=== PATIENT | female | born 1975 | race African-American/Black ===

== ENCOUNTER 2016-12-06 00:59 | Emergency (ER) | payer OTHER ==
[2016-12-06] MEDS ORDERED: HYDROcodone/Acetaminophen 10/325 mg Tablet ONE (01:27)
== END 2016-12-06 01:36 | disposition home or self-care (01) ==
LOC: ERS 00:59
DX: K02.9 Dental caries, unspecified (principal); K03.81 Cracked tooth; F20.9 Schizophrenia, unspecified; F32.9 Major depressive disorder, single episode, unspecified; F17.210 Nicotine dependence, cigarettes, uncomplicated; G51.0 Bell's palsy; I10 Essential (primary) hypertension; J45.909 Unspecified asthma, uncomplicated; K21.9 Gastro-esophageal reflux disease without esophagitis; Z79.899 Other long term (current) drug therapy
CPT/HCPCS: 99283

== ENCOUNTER 2017-01-01 19:33 | Emergency (ER) | payer OTHER ==
[2017-01-01] MEDS ORDERED: HYDROcodone/Acetaminophen 10/325 mg Tablet ONE (20:48)
== END 2017-01-01 20:54 | disposition home or self-care (01) ==
LOC: ERS 19:33
DX: K03.81 Cracked tooth (principal); K04.7 Periapical abscess without sinus; K02.9 Dental caries, unspecified; K21.9 Gastro-esophageal reflux disease without esophagitis; F20.9 Schizophrenia, unspecified; F32.9 Major depressive disorder, single episode, unspecified; F17.210 Nicotine dependence, cigarettes, uncomplicated; J45.909 Unspecified asthma, uncomplicated; G51.0 Bell's palsy; I10 Essential (primary) hypertension; M46.90 Unspecified inflammatory spondylopathy, site unspecified; M19.011 Primary osteoarthritis, right shoulder; Z71.6 Tobacco abuse counseling
CPT/HCPCS: 99406

== ENCOUNTER 2017-01-20 20:35 | Emergency (ER) | payer OTHER | END 2017-01-20 23:10 | disposition home or self-care (01) | LOC: ERS 20:35 | DX: G89.29 Other chronic pain (principal); M79.603 Pain in arm, unspecified; K21.9 Gastro-esophageal reflux disease without esophagitis; G51.0 Bell's palsy; J45.909 Unspecified asthma, uncomplicated; F20.9 Schizophrenia, unspecified; F32.9 Major depressive disorder, single episode, unspecified; F17.210 Nicotine dependence, cigarettes, uncomplicated; M19.90 Unspecified osteoarthritis, unspecified site; Z79.899 Other long term (current) drug therapy | CPT/HCPCS: 99283 ==

== ENCOUNTER 2017-01-29 16:25 | Emergency (ER) | payer OTHER ==
[2017-01-29] MEDS ORDERED: Ibuprofen 200 MG TAB ONE (18:01)
== END 2017-01-29 19:42 | disposition left against medical advice (07) ==
LOC: ERS 16:25
DX: M79.672 Pain in left foot (principal); K21.9 Gastro-esophageal reflux disease without esophagitis; I10 Essential (primary) hypertension; J45.909 Unspecified asthma, uncomplicated; F20.9 Schizophrenia, unspecified; F32.9 Major depressive disorder, single episode, unspecified; F17.210 Nicotine dependence, cigarettes, uncomplicated
CPT/HCPCS: 36415; 84550; 99283

== ENCOUNTER 2017-02-18 13:12 | Emergency (ER) | payer OTHER | END 2017-02-18 13:48 | disposition left against medical advice (07) | LOC: ERS 13:12 | DX: Z53.21 Procedure and treatment not carried out due to patient leaving prior to being seen by health care provider (principal) ==

== ENCOUNTER 2017-03-11 13:45 | Emergency (ER) | payer OTHER ==
[2017-03-11] MEDS ORDERED: Ibuprofen 800 MG TAB ONE (16:21)
[2017-03-11] MEDS ORDERED: predniSONE 20 MG TAB ONE (16:21)
== END 2017-03-11 16:48 | disposition home or self-care (01) ==
LOC: ERS 13:45
DX: M79.672 Pain in left foot (principal); G89.29 Other chronic pain; M19.90 Unspecified osteoarthritis, unspecified site; K21.9 Gastro-esophageal reflux disease without esophagitis; I10 Essential (primary) hypertension; J45.909 Unspecified asthma, uncomplicated; F32.9 Major depressive disorder, single episode, unspecified; F20.9 Schizophrenia, unspecified; F17.210 Nicotine dependence, cigarettes, uncomplicated
CPT/HCPCS: 99283; J7506

== ENCOUNTER 2017-03-19 11:05 | Outpatient (CLI) | payer OTHER | END 2017-03-19 11:06 | disposition home or self-care (01) | LOC: BICRAD 11:05 | PROVIDERS: ATTEND Family Medicine | DX: M79.672 Pain in left foot (principal); M77.32 Calcaneal spur, left foot ==

== ENCOUNTER 2017-03-30 13:41 | Emergency (ER) | payer OTHER ==
[2017-03-30] MEDS ORDERED: Ketorolac Tromethamine 30 MG/ML VIAL ONE (14:11)
== END 2017-03-30 14:36 | disposition home or self-care (01) ==
LOC: ERS 13:41
DX: G89.29 Other chronic pain (principal); M79.672 Pain in left foot; K21.9 Gastro-esophageal reflux disease without esophagitis; I10 Essential (primary) hypertension; J45.909 Unspecified asthma, uncomplicated; F17.210 Nicotine dependence, cigarettes, uncomplicated; F32.9 Major depressive disorder, single episode, unspecified; F20.9 Schizophrenia, unspecified
CPT/HCPCS: 96372; J1885

== ENCOUNTER 2017-04-13 16:14 | Emergency (ER) | payer OTHER | END 2017-04-13 17:24 | disposition home or self-care (01) | LOC: ERS 16:14 | DX: G89.29 Other chronic pain (principal); M79.672 Pain in left foot; F20.9 Schizophrenia, unspecified; M19.90 Unspecified osteoarthritis, unspecified site; J45.909 Unspecified asthma, uncomplicated; K21.9 Gastro-esophageal reflux disease without esophagitis; I10 Essential (primary) hypertension; F32.9 Major depressive disorder, single episode, unspecified; F17.210 Nicotine dependence, cigarettes, uncomplicated | CPT/HCPCS: 99283 ==

== ENCOUNTER 2017-05-06 14:06 | Emergency (ER) | payer OTHER | END 2017-05-06 15:11 | disposition left against medical advice (07) | LOC: ERS 14:06 | DX: Z53.21 Procedure and treatment not carried out due to patient leaving prior to being seen by health care provider (principal) | CPT/HCPCS: 87081; 87430; 87804 ==

== ENCOUNTER 2017-05-25 13:57 | Emergency (ER) | payer OTHER ==
[2017-05-25] MEDS ORDERED: Ketorolac Tromethamine 60 MG/2 ML VIAL ONE (14:52)
[2017-05-25 15:03] LABS: Bilirubin Negative (Negative); Blood, Urine Negative (Negative); Clarity CLEAR (Clear); Glucose, Urine (Dipstick) Negative (Negative); Leukocyte Small (Negative); Nitrite Negative (Negative); Protein, Urine (Dipstick) Negative (Neg-Trace); Specific Gravity, Urine 1.013 (1.002-1.036); pH, Urine 7.5 (5.0-9.0)
[2017-05-25 15:06] LABS: Bacteria/HPF None Seen HPF (None Seen); Hyaline Casts/LPF 4-6 HYALINE CAST LPF (0-3 Hyaline); Pathc Cast-AUWi Flag 1.16 (0-2.49); RBC/HPF 0-3 HPF (0-3); Squamous Epithelial 0-3 HPF (0-3)
== END 2017-05-25 15:49 | disposition home or self-care (01) ==
LOC: ERS 13:57
DX: N39.0 Urinary tract infection, site not specified (principal); M19.90 Unspecified osteoarthritis, unspecified site; K21.9 Gastro-esophageal reflux disease without esophagitis; E66.9 Obesity, unspecified; I10 Essential (primary) hypertension; J45.909 Unspecified asthma, uncomplicated; F32.9 Major depressive disorder, single episode, unspecified; F20.9 Schizophrenia, unspecified; F17.210 Nicotine dependence, cigarettes, uncomplicated; Z79.891 Long term (current) use of opiate analgesic; Z79.899 Other long term (current) drug therapy
CPT/HCPCS: 81003; 81015; 87077; 87086; 96372; J1885

== ENCOUNTER 2017-07-11 16:26 | Emergency (ER) | payer OTHER | END 2017-07-11 17:41 | disposition home or self-care (01) | LOC: ERS 16:26 | DX: L02.214 Cutaneous abscess of groin (principal); E66.9 Obesity, unspecified; K21.9 Gastro-esophageal reflux disease without esophagitis; M19.90 Unspecified osteoarthritis, unspecified site; J45.909 Unspecified asthma, uncomplicated; F32.9 Major depressive disorder, single episode, unspecified; F20.9 Schizophrenia, unspecified; I10 Essential (primary) hypertension; F17.210 Nicotine dependence, cigarettes, uncomplicated; Z79.891 Long term (current) use of opiate analgesic; Z79.899 Other long term (current) drug therapy | CPT/HCPCS: 99281 ==

== ENCOUNTER 2017-08-19 15:09 | Outpatient (CLI) | payer OTHER ==
--- NOTE | 2017-08-19 16:27 | MMO ---
BILATERAL SCREENING MAMMOGRAM: Indication: Annual exam. Comparison: None; baseline exam. FINDINGS: This study is interpreted with the assistance of computer aided detection. There are scattered fibroglandular elements bilaterally. There are benign appearing calcifications bilaterally. There are benign scattered small soft tissue masses within the right and left breasts which may refle ct small cysts or possibly small fibroadenomas. No suspicious mass, cluster of microcalcifications, or area of architectural distortion evident. IMPRESSION: BIRADS category 2 - benign. POS: [facility]
== END 2017-08-19 15:10 | disposition home or self-care (01) ==
LOC: SCSMAMMO 15:09
PROVIDERS: ATTEND Family Medicine
DX: Z12.31 Encounter for screening mammogram for malignant neoplasm of breast (principal)
CPT/HCPCS: 77067

== ENCOUNTER 2017-08-26 17:01 | Emergency (ER) | payer OTHER ==
--- NOTE | 2017-08-26 17:27 | RAD ---
LEFT HAND THREE VIEWS: 08/26/2017 HISTORY: Left wrist pain for three weeks. No recent injury. COMPARISON: 03/07/2015 FINDINGS: There is no evidence of a fracture, dislocation, or other osseous abnormality involving the left wris t. There has been no interval change when compared to the prior exam. IMPRESSION: No acute osseous abnormality. If there is clinical concern for fracture of the navicular bone, follo w-up views of the wrist can be performed in four to seven days, to exclude a radiographically occult fracture. POS: [facility]
== END 2017-08-26 17:55 | disposition home or self-care (01) ==
LOC: ERS 17:01
DX: M70.832 Other soft tissue disorders related to use, overuse and pressure, left forearm (principal); E03.9 Hypothyroidism, unspecified; E66.9 Obesity, unspecified; M19.90 Unspecified osteoarthritis, unspecified site; K21.9 Gastro-esophageal reflux disease without esophagitis; I10 Essential (primary) hypertension; J45.909 Unspecified asthma, uncomplicated; F32.9 Major depressive disorder, single episode, unspecified; F20.9 Schizophrenia, unspecified; F17.210 Nicotine dependence, cigarettes, uncomplicated; X50.3XXA Overexertion from repetitive movements, initial encounter; Y92.89 Other specified places as the place of occurrence of the external cause; Z79.899 Other long term (current) drug therapy

== ENCOUNTER 2017-09-22 18:41 | Emergency (ER) | payer OTHER | END 2017-09-22 19:18 | disposition home or self-care (01) | LOC: ERS 18:41 | DX: Z00.00 Encounter for general adult medical examination without abnormal findings (principal); E03.9 Hypothyroidism, unspecified; F32.9 Major depressive disorder, single episode, unspecified; F17.210 Nicotine dependence, cigarettes, uncomplicated; E66.9 Obesity, unspecified; I10 Essential (primary) hypertension; K21.9 Gastro-esophageal reflux disease without esophagitis; J45.909 Unspecified asthma, uncomplicated; Z79.899 Other long term (current) drug therapy | CPT/HCPCS: 99282 ==

== ENCOUNTER 2017-10-24 13:36 | Outpatient (CLI) | payer OTHER | END 2017-10-24 13:37 | disposition home or self-care (01) | LOC: BICRAD 13:36 | PROVIDERS: ATTEND Family Medicine | DX: M51.16 Intervertebral disc disorders with radiculopathy, lumbar region (principal); M51.17 Intervertebral disc disorders with radiculopathy, lumbosacral region; M47.26 Other spondylosis with radiculopathy, lumbar region; M47.27 Other spondylosis with radiculopathy, lumbosacral region | CPT/HCPCS: 72100 ==

== ENCOUNTER 2018-01-07 11:44 | Outpatient (CLI) | payer OTHER ==
--- NOTE | 2018-01-07 17:44 | MRI ---
MRI LUMBAR SPINE WITHOUT CONTRAST: Date: 01/07/18 HISTORY: M56.1, back pain with radiculopathy. Chronic back pain since her 20s. COMPARISON: Lumbar spine radiographs dated 10/24/17. FINDINGS: The aortic contour is nonaneurysmal. No hydronephrosis. No retroperitoneal adenopathy. Paraspinal musculature is normal. There is no marrow infiltrative process. The conus medullaris terminates at the inferior end plate of L1. Levels are as follows: L1-2: Normal disc. No neural foraminal or spinal canal narrowing. L2-3: Normal disc. No neural foraminal or spinal canal narrowing. L3-4: There is mild disc desiccation. There are small bilateral subforaminal posterior disc osteophy te complexes. Mild facet arthropathy. Mild bilateral neural foraminal narrowing. L4-5: Moderate degenerative disc space height loss. There is a broad based posterior disc bulge, wor se in the right paracentral subforaminal and extraforaminal zones, although there is extension into t he left subforaminal zone. There is moderate bilateral neural foraminal narrowing with abutment of th e exiting and traverse nerve roots. The spinal canal is narrowed to approximately 5.0 mm. There are s mall osteophytes associated with this posterior disc protrusion. L5-S1: Circumferential disc bulge with greater extension in left paracentral subforaminal and extraf oraminal zones. Moderate facet arthropathy. There is abutment of the exiting traversing nerve roots o n the left, as well as on the right. The spinal canal measures approximately 7.0 mm. IMPRESSION: 1. Spondylosis centered at L4-5 and L5-S1 with neural foraminal and spinal canal narrowing. 2. 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 POS: [facility]
== END 2018-01-07 11:45 | disposition home or self-care (01) ==
LOC: BICMRI 11:44
PROVIDERS: ATTEND Family Medicine
DX: M47.26 Other spondylosis with radiculopathy, lumbar region (principal); M47.817 Spondylosis without myelopathy or radiculopathy, lumbosacral region; M48.061 Spinal stenosis, lumbar region without neurogenic claudication; Q67.5 Congenital deformity of spine
CPT/HCPCS: 72148

== ENCOUNTER 2018-01-12 16:08 | Emergency (ER) | payer OTHER ==
--- NOTE | 2018-01-12 16:46 | RAD ---
THREE VIEWS LEFT FOOT: Comparison: 10-31-15 History: Stepped on nail, left foot pain. FINDINGS: Three views of the left foot shows no evidence of acute fracture or dislocation. No degenerative cox ges are seen. No soft tissue swelling is seen. No radiopaque foreign body is present. IMPRESSION: Unremarkable exam. POS: [facility]
[2018-01-12] MEDS ORDERED: Adacel (T-DAP) 0.5 ML VIAL ONE (16:54)
[2018-01-12] MEDS ORDERED: Bacitracin Zinc 1 Packet ONE (16:54)
[2018-01-12] MEDS ORDERED: Ibuprofen 200 MG TAB ONE (16:54)
== END 2018-01-12 17:24 | disposition home or self-care (01) ==
LOC: ERS 16:08
DX: S91.331A Puncture wound without foreign body, right foot, initial encounter (principal); K21.9 Gastro-esophageal reflux disease without esophagitis; I10 Essential (primary) hypertension; F20.9 Schizophrenia, unspecified; F32.9 Major depressive disorder, single episode, unspecified; F17.210 Nicotine dependence, cigarettes, uncomplicated; Z79.899 Other long term (current) drug therapy; Z79.891 Long term (current) use of opiate analgesic; W45.0XXA Nail entering through skin, initial encounter
CPT/HCPCS: 90471; 90715

== ENCOUNTER 2018-05-11 19:41 | Emergency (ER) | payer OTHER ==
[2018-05-11] MEDS ORDERED: Prochlorperazine Maleate 5 MG TAB ONE (22:13)
== END 2018-05-11 22:50 | disposition home or self-care (01) ==
LOC: ERS 19:41
DX: M62.838 Other muscle spasm (principal); R51 Headache; K21.9 Gastro-esophageal reflux disease without esophagitis; E03.9 Hypothyroidism, unspecified; E66.9 Obesity, unspecified; M19.90 Unspecified osteoarthritis, unspecified site; J45.909 Unspecified asthma, uncomplicated; F32.9 Major depressive disorder, single episode, unspecified; F20.9 Schizophrenia, unspecified; F17.210 Nicotine dependence, cigarettes, uncomplicated; Z79.899 Other long term (current) drug therapy; Z79.891 Long term (current) use of opiate analgesic
CPT/HCPCS: 99281; Q0164

== ENCOUNTER 2018-05-22 08:41 | Outpatient (CLI) | payer OTHER ==
--- NOTE | 2018-05-22 09:45 | ULT ---
SOFT TISSUE ULTRASOUND: HISTORY: Left parietal palpable mass. FINDINGS: Ultrasound evaluation of a palpable finding involving the left parietal region of the skull. There i s an oval fairly well circumscribed 0.6 x 2.2 x 2.2 cm diameter somewhat heterogeneous echogenic "mas s" noted superficial to the calvarium in the region of palpable concern. This probably represents a cephalohematoma. Consider followup brain CT for further assessment if there remains clinical concern . IMPRESSION: Circumscribed oval somewhat heterogeneously echogenic mass just peripheral to the calvarium accountin g for the palpable finding most consistent with a cephalohematoma. Consider followup brain CT if the re remains clinical concern. POS: [facility]
== END 2018-05-22 08:42 | disposition home or self-care (01) ==
LOC: BICULT 08:41
PROVIDERS: ATTEND Family Medicine
DX: G93.89 Other specified disorders of brain (principal); R90.89 Other abnormal findings on diagnostic imaging of central nervous system
CPT/HCPCS: 76999

== ENCOUNTER 2018-07-21 20:28 | Emergency (ER) | payer OTHER ==
--- NOTE | 2018-07-21 20:58 | RAD ---
EXAM: Single view of the chest HISTORY: Chest pain COMPARISON: 06/26/2016 FINDINGS: Single view of the chest shows a normal sized cardiomediastinal silhouette. There is no amber dence of consolidation, mass, or pleural effusion. The bones are unremarkable. IMPRESSION: No evidence of acute cardiopulmonary disease
[2018-07-21 21:06] LABS: #Basophils 0.1 thou/uL (0.0-0.2); #Eosinphils 0.3 thou/uL (0.0-0.7); #Lymphocytes 3.8 thou/uL (1.20-3.40); #Monocytes 0.7 thou/uL (0.11-0.59); #Neutrophils 4.4 thou/uL (1.40-6.50); %Basophils 1.2 % (0.0-1.0); %Eosinophils 3.5 % (0.0-10.0); %Lymphocytes 40.7 % (21.0-51.0); %Monocytes 7.2 % (0.0-10.0); %Neutrophils 47.4 % (42.0-75.0); Hemoglobin 13.6 g/dL (12.0-16.0); Mean Corpuscular Hemoglobin 32.5 pg (27.0-31.0); Mean Corpuscular Volume 95.5 fL (78.0-98.0); Mean Platelet Volume 7.3 fL (7.4-10.4); Platelet Count 277 thou/uL (130-400); RBC Distribution Width 11.5 % (11.5-14.5); Red Blood Cell (RBC) Count 4.19 mill/uL (4.20-5.40); White Blood Cell (WBC) Count 9.3 thou/uL (4.8-10.8)
[2018-07-21 21:35] LABS: ALT (SGPT) 14 U/L (8-55); AST (SGOT) 23 U/L (5-34); Albumin 4.1 g/dL (3.5-5.0); Alkaline Phosphatase 72 U/L (40-150); Anion Gap 12 mmol/L (10-20); BUN (Urea Nitrogen) 12 mg/dL (7.0-18.7); Bilirubin, Total 0.2 mg/dL (0.2-1.2); CK (CPK) 164 U/L (29-168); Calc. Creatinine Clearance 0 mL/min (70-130); Calcium 9.3 mg/dL (7.8-10.44); Carbon Dioxide 23 mmol/L (22-29); Chloride 108 mmol/L (98-107); Estimated GFR-MDRD 69; Globulin 3.1 g/dL (2.4-3.5); Glucose 108 mg/dL (70-105); Potassium 4.3 mmol/L (3.5-5.1); Protein, Total 7.2 g/dL (6.0-8.3); Sodium 139 mmol/L (136-145)
[2018-07-21] MEDS ORDERED: traMADol HCl 50 MG TAB ONE (21:37)
--- NOTE | 2018-07-26 14:53 | EKG ---
Test Reason : Blood Pressure : / mmHG Vent. Rate : 084 BPM Atrial Rate : 084 BPM P-R Int : 170 ms QRS Dur : 098 ms QT Int : 370 ms P-R-T Axes : 059 060 050 degrees QTc Int : 437 ms Normal sinus rhythm Cannot rule out Anterior infarct , age undetermined Abnormal ECG Confirmed by LEOBARDO COLLINS, SHEILA ([id number]), school photograph editor MACIEJ TEJADA ([id number]) on 07/26/2018 2:52:55 PM Referred By: Confirmed By:SHEILA BOOTH MD
== END 2018-07-21 21:53 | disposition home or self-care (01) ==
LOC: ERS 20:28
DX: R07.9 Chest pain, unspecified (principal); K21.9 Gastro-esophageal reflux disease without esophagitis; E03.9 Hypothyroidism, unspecified; I10 Essential (primary) hypertension; J45.909 Unspecified asthma, uncomplicated; F20.9 Schizophrenia, unspecified; F32.9 Major depressive disorder, single episode, unspecified; F17.210 Nicotine dependence, cigarettes, uncomplicated; M19.90 Unspecified osteoarthritis, unspecified site; E66.9 Obesity, unspecified; Z79.891 Long term (current) use of opiate analgesic; Z79.899 Other long term (current) drug therapy
CPT/HCPCS: 36416; 71045; 80053; 82550; 84484; 85025; 93005; 94760; C1713

== ENCOUNTER 2018-09-15 10:19 | Outpatient (CLI) | payer OTHER ==
--- NOTE | 2018-09-15 11:18 | MMO ---
Bilateral MAMMO Bilat Screen [facility]DI. CLINICAL HISTORY: Patient is 43 years old and is seen for screening. The patient has no family history of breast cancer. The patient has no personal history of cancer. VIEWS: The views performed were: bilateral craniocaudal; bilateral mediolateral oblique; and cleavage view. FILMS COMPARED: The present examination has been compared to a prior imaging study performed at [facility] on 08/19/2017. This study has been interpreted with the assistance of computer-aided detection. MAMMOGRAM FINDINGS: There are scattered fibroglandular densities. Finding 1: There are stable intramammary lymph nodes seen in both breasts. Finding 2: There are multiple stable nodules of varying size seen in both breasts. Finding 3: There are stable benign appearing calcifications seen in both breasts. There are no suspicious masses, suspicious calcifications, or new areas of architectural distortion. IMPRESSION: THERE IS NO MAMMOGRAPHIC EVIDENCE OF MALIGNANCY. A ROUTINE FOLLOW-UP MAMMOGRAM IN 1 YEAR IS RECOMMENDED. ACR BI-RADS Category 2 - Benign finding MAMMOGRAPHY NOTE: 1. A negative mammogram report should not delay a biopsy if a dominant of clinically suspicious mass is present. 2. Approximately 10% to 15% of breast cancers are not detected by mammography. 3. Adenosis and dense breasts may obscure an underlying neoplasm. Reported by: VSIHNU SALVADOR MD Electonically Signed: [id number]
== END 2018-09-15 10:20 | disposition home or self-care (01) ==
LOC: SCSMAMMO 10:19
PROVIDERS: ATTEND Family Medicine
DX: Z12.31 Encounter for screening mammogram for malignant neoplasm of breast (principal)
CPT/HCPCS: 77067

== ENCOUNTER 2019-02-27 12:13 | Emergency (ER) | payer OTHER ==
[2019-02-27] MEDS ORDERED: Ibuprofen 800 MG TAB ONE (12:45)
[2019-02-27] MEDS ORDERED: HYDROcodone/Acetaminophen 10/325 mg Tablet ONE (12:45)
== END 2019-02-27 13:06 | disposition home or self-care (01) ==
LOC: ERS 12:13
DX: M54.5 Low back pain (principal); G89.29 Other chronic pain; E03.9 Hypothyroidism, unspecified; K21.9 Gastro-esophageal reflux disease without esophagitis; I10 Essential (primary) hypertension; J45.909 Unspecified asthma, uncomplicated; M19.90 Unspecified osteoarthritis, unspecified site; F32.9 Major depressive disorder, single episode, unspecified; F20.9 Schizophrenia, unspecified; F17.210 Nicotine dependence, cigarettes, uncomplicated; Z79.899 Other long term (current) drug therapy
CPT/HCPCS: 99283

== ENCOUNTER 2019-03-07 21:52 | Emergency (ER) | payer OTHER ==
[2019-03-07] MEDS ORDERED: Ketorolac Tromethamine 60 MG/2 ML VIAL ONE (22:09)
[2019-03-07] MEDS ORDERED: Acetaminophen/Codeine 30-300mg Tablet ONE (22:09)
--- NOTE | 2019-03-07 22:31 | RAD ---
EXAM: Two views chest PROVIDED CLINICAL HISTORY: Right chest pain. COMPARISON: 07/21/2018 FINDINGS: Cardiac silhouette and pulmonary vasculature are within normal limits. There is suggestion of slight blunting of the right lateral costophrenic angle, but a similar finding was seen on prior study on 10/26/2016 as well as more recent study on 07/21/2018. This may be related to minimal pleural and paren chymal scarring. Lungs are otherwise clear. The osseous structures have a normal appearance. IMPRESSION: No acute cardiopulmonary process.
== END 2019-03-07 22:53 | disposition home or self-care (01) ==
LOC: ERS 21:52
DX: R07.81 Pleurodynia (principal); E03.9 Hypothyroidism, unspecified; M19.90 Unspecified osteoarthritis, unspecified site; J45.909 Unspecified asthma, uncomplicated; I10 Essential (primary) hypertension; F20.9 Schizophrenia, unspecified; F32.9 Major depressive disorder, single episode, unspecified; F17.210 Nicotine dependence, cigarettes, uncomplicated; Z79.899 Other long term (current) drug therapy
CPT/HCPCS: 71046; 96372; J1885

== ENCOUNTER 2019-05-30 21:39 | Emergency (ER) | payer SELFPAY ==
[2019-05-30 22:22] LABS: Bilirubin Negative (Negative); Blood, Urine Negative (Negative); Clarity Clear (Clear); Glucose, Urine (Dipstick) Normal (Negative); Leukocyte Negative Leu/uL (Negative); Mucous/LPF 2+ LPF (<2+); Nitrite Negative (Negative); Protein, Urine (Dipstick) 50 mg/dL (Neg-Trace); Urobilinogen 6 mg/dL (Less than 2); WBC/HPF 0-3 HPF (0-3)
[2019-05-30 22:26] LABS: Calcium Oxalate Crystals 3+ HPF (None Seen)
[2019-05-30 22:27] LABS: Bacteria/HPF Rare-Few HPF (None Seen)
== END 2019-05-30 22:44 | disposition home or self-care (01) ==
LOC: ERS 21:39
DX: M54.5 Low back pain (principal); E03.9 Hypothyroidism, unspecified; K21.9 Gastro-esophageal reflux disease without esophagitis; I10 Essential (primary) hypertension; J45.909 Unspecified asthma, uncomplicated; F17.210 Nicotine dependence, cigarettes, uncomplicated; Z79.899 Other long term (current) drug therapy
CPT/HCPCS: 81003; 81015; 99281

== ENCOUNTER 2019-06-28 20:25 | Emergency (ER) | payer OTHER ==
--- NOTE | 2019-06-28 20:55 | RAD ---
THREE VIEWS RIGHT SHOULDER: Comparison: None History: Tripped and fell with right shoulder pain. FINDINGS: Three views of the right shoulder shows no evidence of acute fracture or dislocation. No degenerative changes are seen. The visualized right thorax is unremarkable. IMPRESSION: No evidence of acute osseous abnormality. POS: [facility]
[2019-06-28] MEDS ORDERED: HYDROcodone/Acetaminophen 5/325 mg Tablet ONE (21:32)
== END 2019-06-28 21:43 | disposition home or self-care (01) ==
LOC: ERS 20:25
DX: S40.011A Contusion of right shoulder, initial encounter (principal); E03.9 Hypothyroidism, unspecified; K21.9 Gastro-esophageal reflux disease without esophagitis; I10 Essential (primary) hypertension; M19.90 Unspecified osteoarthritis, unspecified site; J45.909 Unspecified asthma, uncomplicated; F17.210 Nicotine dependence, cigarettes, uncomplicated; F20.9 Schizophrenia, unspecified; F32.9 Major depressive disorder, single episode, unspecified; Z79.899 Other long term (current) drug therapy; W01.0XXA Fall on same level from slipping, tripping and stumbling without subsequent striking against object, initial encounter

== ENCOUNTER 2019-10-24 13:34 | Emergency (ER) | payer OTHER | END 2019-10-24 14:24 | disposition home or self-care (01) | LOC: ERS 13:34 | DX: M62.830 Muscle spasm of back (principal); E03.9 Hypothyroidism, unspecified; K21.9 Gastro-esophageal reflux disease without esophagitis; I10 Essential (primary) hypertension; J45.909 Unspecified asthma, uncomplicated; F17.210 Nicotine dependence, cigarettes, uncomplicated; F32.9 Major depressive disorder, single episode, unspecified; F20.9 Schizophrenia, unspecified; Z79.899 Other long term (current) drug therapy | CPT/HCPCS: 99281 ==

== ENCOUNTER 2019-11-21 09:48 | Emergency (ER) | payer OTHER ==
[2019-11-21 10:14] LABS: #Basophils 0.1 thou/uL (0.0-0.2); #Eosinphils 0.2 thou/uL (0.0-0.7); #Lymphocytes 1.5 thou/uL (1.20-3.40); #Monocytes 0.1 thou/uL (0.11-0.59); #Neutrophils 6.4 thou/uL (1.40-6.50); %Basophils 0.7 % (0.0-1.0); %Eosinophils 2.3 % (0.0-10.0); %Lymphocytes 17.8 % (21.0-51.0); %Monocytes 1.4 % (0.0-10.0); %Neutrophils 77.8 % (42.0-75.0); Hemoglobin 14.5 g/dL (12.0-16.0); Mean Corpuscular HGB CONC 34.2 g/dL (32.0-36.0); Mean Corpuscular Hemoglobin 32.6 pg (27.0-31.0); Mean Corpuscular Volume 95.3 fL (78.0-98.0); Mean Platelet Volume 7.4 fL (7.4-10.4); Platelet Count 374 thou/uL (130-400); Red Blood Cell (RBC) Count 4.45 mill/uL (4.20-5.40); White Blood Cell (WBC) Count 8.3 thou/uL (4.8-10.8)
[2019-11-21 10:33] LABS: ALT (SGPT) 14 U/L (8-55); AST (SGOT) 19 U/L (5-34); Albumin 4.1 g/dL (3.5-5.0); Alkaline Phosphatase 64 U/L (40-110); Anion Gap 14 mmol/L (10-20); BUN (Urea Nitrogen) 11 mg/dL (7.0-18.7); Bilirubin, Total 0.4 mg/dL (0.2-1.2); Calc. Creatinine Clearance 0 mL/min (70-130); Calcium 9.5 mg/dL (7.8-10.44); Carbon Dioxide 25 mmol/L (22-29); Chloride 106 mmol/L (98-107); Estimated GFR-MDRD 58; Globulin 3.5 g/dL (2.4-3.5); Glucose 115 mg/dL (70-105); Potassium 4.1 mmol/L (3.5-5.1); Protein, Total 7.6 g/dL (6.0-8.3); Sodium 141 mmol/L (136-145)
[2019-11-21 10:58] LABS: Bilirubin Negative (Negative); Blood, Urine Negative (Negative); Clarity Clear (Clear); Glucose, Urine (Dipstick) Normal (Negative); Ketone, Urine Negative (Negative); Leukocyte Negative Leu/uL (Negative); Nitrite Negative (Negative); Protein, Urine (Dipstick) Negative (Neg-Trace); Specific Gravity, Urine 1.021 (1.002-1.036); Urobilinogen Normal mg/dL (Less than 2); pH, Urine 7.5 (5.0-9.0)
[2019-11-21 11:16] LABS: BHCG - Serum Negative (NEGATIVE); Pregs Control Background? CLEAR/WHITE (CLR/WHITE); Pregs Control Bar Appear? YES (CONTROL BAR)
== END 2019-11-21 11:36 | disposition home or self-care (01) ==
LOC: ERS 09:48
DX: R10.9 Unspecified abdominal pain (principal); I10 Essential (primary) hypertension; E03.9 Hypothyroidism, unspecified; K21.9 Gastro-esophageal reflux disease without esophagitis; J45.909 Unspecified asthma, uncomplicated; F17.210 Nicotine dependence, cigarettes, uncomplicated; F32.9 Major depressive disorder, single episode, unspecified; Z79.899 Other long term (current) drug therapy
CPT/HCPCS: 36415; 80053; 81003; 84703; 85025; 99284

== ENCOUNTER 2019-11-27 01:07 | Emergency (ER) | payer OTHER ==
--- NOTE | 2019-11-27 07:54 | RAD ---
XR Foot Rt 3 View STANDARD History: Fall Comparison: None. Findings: No acute displaced fracture or malalignment. Lisfranc interval is maintained. Proximal fift h metatarsal tuberosity is intact. Large plantar calcaneal spur. Bipartite medial hallux sesamoid. Impression: Chronic findings. No acute fracture. If patient is clinically tender over the Lisfranc in terval, MRI would be recommended.
--- NOTE | 2019-11-27 07:54 | RAD ---
RADIOGRAPH RIGHT ANKLE 3 VIEWS: DATE: 11/27/2019 HISTORY: 44-year-old female with acute traumatic right ankle pain FINDINGS: Ankle mortise is congruent. There is no evidence of fracture. There is no subluxation or dislocation. There is soft tissue edema. IMPRESSION: No fracture.
--- NOTE | 2019-11-27 07:55 | RAD ---
Radiograph right leg tibia-fibula 2 views: HISTORY: Acute traumatic pain from fall FINDINGS: No fracture or any other osseous abnormality of tibia or fibula. IMPRESSION: Negative
--- NOTE | 2019-11-27 07:56 | RAD ---
XR Knee Rt 4 View STANDARD History: Fall Comparison: None. Findings: No significant joint effusion. Small ossicle the distal quadriceps tendon 1.2 cm above the patella. No acute displaced fracture or malalignment. Impression: No acute osseous abnormality.
== END 2019-11-27 02:43 | disposition home or self-care (01) ==
LOC: ERS 01:07
DX: S93.401A Sprain of unspecified ligament of right ankle, initial encounter (principal); E03.9 Hypothyroidism, unspecified; K21.9 Gastro-esophageal reflux disease without esophagitis; I10 Essential (primary) hypertension; F32.9 Major depressive disorder, single episode, unspecified; F17.210 Nicotine dependence, cigarettes, uncomplicated; Z79.899 Other long term (current) drug therapy; W01.0XXA Fall on same level from slipping, tripping and stumbling without subsequent striking against object, initial encounter
CPT/HCPCS: 29515

== ENCOUNTER 2019-12-22 14:01 | Emergency (ER) | payer OTHER ==
--- NOTE | 2019-12-22 14:42 | RAD ---
EXAM: 3 views of the left ankle HISTORY: Ankle pain after stepping in a hole COMPARISON: None FINDINGS: 3 views of the left ankle shows no evidence of acute fracture or dislocation. Mild anterior and medial soft tissue swelling is seen. No degenerative changes are present. IMPRESSION: No evidence of acute osseous abnormality.
== END 2019-12-22 15:12 | disposition home or self-care (01) ==
LOC: ERS 14:01
DX: S93.402A Sprain of unspecified ligament of left ankle, initial encounter (principal); K21.9 Gastro-esophageal reflux disease without esophagitis; M19.90 Unspecified osteoarthritis, unspecified site; J45.909 Unspecified asthma, uncomplicated; E03.9 Hypothyroidism, unspecified; I10 Essential (primary) hypertension; F20.9 Schizophrenia, unspecified; F17.210 Nicotine dependence, cigarettes, uncomplicated; W18.42XA Slipping, tripping and stumbling without falling due to stepping into hole or opening, initial encounter

== ENCOUNTER 2019-12-25 18:25 | Emergency (ER) | payer OTHER ==
[2019-12-25] MEDS ORDERED: HYDROcodone/Acetaminophen 10/325 mg Tablet ONE (18:49)
[2019-12-25] MEDS ORDERED: Ondansetron ODT 4 MG TAB ONE (18:49)
== END 2019-12-25 19:29 | disposition home or self-care (01) ==
LOC: ERS 18:25
DX: S93.402A Sprain of unspecified ligament of left ankle, initial encounter (principal); J45.909 Unspecified asthma, uncomplicated; K21.9 Gastro-esophageal reflux disease without esophagitis; E03.9 Hypothyroidism, unspecified; M19.90 Unspecified osteoarthritis, unspecified site; I10 Essential (primary) hypertension; F20.9 Schizophrenia, unspecified; F32.9 Major depressive disorder, single episode, unspecified; F17.210 Nicotine dependence, cigarettes, uncomplicated; X50.1XXA Overexertion from prolonged static or awkward postures, initial encounter
CPT/HCPCS: 99283; Q0162

== ENCOUNTER 2020-01-22 16:31 | Emergency (ER) | payer OTHER | END 2020-01-22 18:01 | disposition home or self-care (01) | LOC: ERS 16:31 | DX: M79.661 Pain in right lower leg (principal); J45.909 Unspecified asthma, uncomplicated; K21.9 Gastro-esophageal reflux disease without esophagitis; E03.9 Hypothyroidism, unspecified; I10 Essential (primary) hypertension; F17.210 Nicotine dependence, cigarettes, uncomplicated | CPT/HCPCS: 99281 ==

== ENCOUNTER 2020-02-23 09:25 | Outpatient (CLI) | payer OTHER ==
--- NOTE | 2020-02-23 10:09 | RAD ---
LEFT ANKLE: HISTORY: Injury with pain. COMPARISON: Comparison is made to left ankle films of 12/22/2019. FINDINGS: No significant soft tissue swelling. No fracture or osseous abnormality. Enthesophyte from the plan tar calcaneus is again noted. IMPRESSION: No acute osseous abnormality. POS: [facility]
== END 2020-02-23 09:26 | disposition home or self-care (01) ==
LOC: BICRAD 09:25
DX: S99.912A Unspecified injury of left ankle, initial encounter (principal)

== ENCOUNTER 2020-02-29 19:37 | Emergency (ER) | payer OTHER | END 2020-02-29 20:46 | disposition home or self-care (01) | LOC: ERS 19:37 | DX: J06.9 Acute upper respiratory infection, unspecified (principal); I10 Essential (primary) hypertension; J45.909 Unspecified asthma, uncomplicated; E03.9 Hypothyroidism, unspecified; K21.9 Gastro-esophageal reflux disease without esophagitis; M19.90 Unspecified osteoarthritis, unspecified site; F17.210 Nicotine dependence, cigarettes, uncomplicated | CPT/HCPCS: 99281 ==

== ENCOUNTER 2022-05-07 10:59 | Outpatient (CLI) | payer OTHER | END 2022-05-07 11:00 | disposition home or self-care (01) | LOC: RAD-FRANK 10:59 | PROVIDERS: ATTEND Nurse Practitioner Family | DX: M25.511 Pain in right shoulder (principal) ==

== ENCOUNTER 2024-12-15 12:15 | Emergency (ER) | payer OTHER | END 2024-12-15 16:39 | disposition home or self-care (01) | LOC: ERS 12:15 | DX: M13.862 Other specified arthritis, left knee (principal); I10 Essential (primary) hypertension; F17.210 Nicotine dependence, cigarettes, uncomplicated; Z79.899 Other long term (current) drug therapy | CPT/HCPCS: 96372; 99283; J2270 ==

== ENCOUNTER 2025-01-09 12:13 | Emergency (ER) | payer OTHER | END 2025-01-09 15:07 | disposition home or self-care (01) | LOC: ERS 12:13 | DX: M25.562 Pain in left knee (principal); I10 Essential (primary) hypertension; F17.210 Nicotine dependence, cigarettes, uncomplicated | CPT/HCPCS: 96372; 99283 ==